=== PATIENT | male | born 1940 | race Caucasian/White ===

== ENCOUNTER → 2016-04-24 | Outpatient (CLI) | payer OTHER ==
[~2016-04-24] MED LIST: ALBUTEROL2.5 MG/0.1 INH; APAP500 PO; COUMADIN 5 MG TA5 M1 PO; COUMADIN7.5 MG PO; CYMBALTA30 MG PO; DULERA 100 MCG/13 GM; DULERA 200 MCG/13 GM INH; FINASTERIDE5 MG PO; KEFLEX500 MG PO; LANOXIN 0.120.125 M1 PO; MACULAR VITAMI1 EACH PO; MIRTAZAPINE45 MG PO; MULTIVITAMINS1 EAC7 PO; MYLANTA TABLET1 TA1 PO; NORCO 5-325 TA1 EACH; NORFLEX100 MG PO; OCUVITE TABLET1 EAC1 PO; PERCOCET 5-3251 EACH PO; PRILOSEC40 MG PO; PROAIR HFA8.5 GM; REMERON 30 MG T30 M1 PO; SYMBICORT160 MCG/4.; TAMSULOSIN HCL0.4 M1 PO; TYLENOL EX-STR500 M2; VERAPAMIL ER180 MG PO
== END ==
LOC: RAD 04-04 15:37
DX: I51.7 Cardiomegaly (principal); R06.02 Shortness of breath; R22.2 Localized swelling, mass and lump, trunk

== ENCOUNTER → 2016-09-14 | Outpatient (CLI) | payer OTHER | LOC: RAD 10:25 | DX: R06.00 Dyspnea, unspecified (principal) ==

== ENCOUNTER → 2016-10-09 | Outpatient (CLI) | payer OTHER | LOC: ULTRA 09:00 | DX: R22.1 Localized swelling, mass and lump, neck (principal) ==

== ENCOUNTER → 2016-12-08 | Outpatient (CLI) | payer OTHER | LOC: CAT 08:38 | DX: J47.9 Bronchiectasis, uncomplicated (principal); J84.10 Pulmonary fibrosis, unspecified; R06.02 Shortness of breath; R91.8 Other nonspecific abnormal finding of lung field ==

== ENCOUNTER → 2018-04-04 | Outpatient (CLI) | payer OTHER | LOC: CAT 09:08 | DX: R91.8 Other nonspecific abnormal finding of lung field (principal); M84.48XD Pathological fracture, other site, subsequent encounter for fracture with routine healing; M95.4 Acquired deformity of chest and rib; Z95.0 Presence of cardiac pacemaker ==

== ENCOUNTER → 2018-09-24 | Outpatient (CLI) | payer OTHER | LOC: RAD 14:07 | DX: M48.56XA Collapsed vertebra, not elsewhere classified, lumbar region, initial encounter for fracture (principal); M41.86 Other forms of scoliosis, lumbar region ==

== ENCOUNTER → 2019-11-27 | Outpatient (CLI) | payer OTHER | LOC: CAT 09:19 | PROVIDERS: ATTEND Pediatrics | DX: R91.1 Solitary pulmonary nodule (principal); J98.4 Other disorders of lung ==

== ENCOUNTER → 2020-06-01 | Outpatient (CLI) | payer OTHER ==
--- NOTE | 2020-06-01 12:38 | 2DMMODE ---
[facility] [place] [address] 2 D/M-MODE ECHOCARDIOGRAM Name: ELIU DOZIER Room #: REG [facility] M..#: [id number] Admission: 06/01/20 Attend Phys: Samy Patel MD Discharge: Date of : 38 Report #: [id number] THIS REPORT FOR: cc: Joe Jules MD, Mark A. MD Santiago, Patrick MD [facility] ~ ADDENDUM APPROVED REPORT Study performed: 06/01/2020 11:17:11 EXAM: Comprehensive 2D, Doppler, and color-flow Echocardiogram Patient Location: Out-Patient Room #: 2 Status: routine BSA: 1.83 HR: 75 bpm BP: 138/80 mmHg Rhythm: Pacemaker Other Information Study Quality: Technically DifficultTechnically Limited Technically limited study due to Chest deformity, Pectus Excavatum. Indications ICD: Dyspnea 2D Dimensions RVDd: 26.63 mm LVOT Diam: 25.03 (18-24mm) Ascending Ao: 40.58 (22-36mm) Aortic Root: 52.38 mm Volumes Left Atrial Volume (Systole) Single Plane 4CH: 90.06 mL Single Plane 2CH: 98.29 mL LA ESV Index: 57.00 mL/m2 Aortic Valve AoV Peak Reed.: 1.28 m/s AO Peak Gr.: 6.57 mmHg LVOT Max P.65 mmHg LVOT Max V: 0.96 m/s RUBEN Vmax: 3.67 cm2 [facility] [address] [place] [address] 2 D/M-MODE ECHOCARDIOGRAM Name: ELIU DOZIER Room #: REG CL [facility].#: [id number] Admission: 06/01/20 Attend Phys: Terry Rajput Discharge: Date of : 38 Report #: [id number] Pulmonary Valve PV Peak Reed.: 0.56 m/s PV Peak Gr.: 1.25 mmHg Tricuspid Valve TR Peak Reed.: 2.18 m/s TR Peak Gr.: 19.09 mmHg PA Pressure: 19.00 mmHg Left Ventricle The left ventricle is normal size. There is normal LV segmental wall motion. There is normal left ventricular wall thickness. The left ventricular systolic function is normal. The left ventricular ejection fraction is within the normal range. LVEF is 55-60%. This study is not technically sufficient to allow evaluation of the LV diastolic function. Right Ventricle The right ventricle is normal size. The right ventricular systolic function is normal. Device lead is present in the right ventricle. Atria Left atrium is dilated. Right atrium is dilated. Device lead is present in the right atrium. Aortic Valve The aortic valve is normal in structure. No aortic regurgitation is present. There is no aortic valvular stenosis. Mitral Valve The mitral valve is normal in structure. Mild mitral regurgitation. No evidence of mitral valve stenosis. Tricuspid Valve The tricuspid valve is normal in structure. There is trace tricuspid regurgitation. Estimated PAP 19 mmHg. Plus the right atrial pressure There is no pulmonary hypertension. Pulmonic Valve The pulmonary valve is normal in structure. There is no pulmonic valvular regurgitation. Great Vessels The aortic root is normal in size. IVC is not well visualized. [facility] [address] [place] [address] 2 D/M-MODE ECHOCARDIOGRAM Name: ELIU DOZIER Room #: REG CL [facility].#: [id number] Admission: 06/01/20 Attend Phys: Terry Rajput Discharge: Date of : 38 Report #: [id number] Pericardium There is no pericardial effusion. <Conclusion> Normal left ventricular size/wall thickness Ejection fraction 60% Severe distal septal hypokineses Normal right ventricular size/function Pacer wire detected in the right ventricle Moderate left atrial enlargement Mild right atrial enlargement Color-flow Doppler study was performed of the aortic/mitral/tricuspid/pulmonary valve Normal aortic valve structure and function Mild mitral valve insufficiency Trace tricuspid valve insufficiency Pulmonary systolic pressure estimated 19 mmHg No pericardial effusion <ELECTRONICALLY SIGNED> By: Edu Darby MD, [facility] 06/01/20 1238 1238 1238 Edu Darby MD, FACC /INF
== END ==
LOC: CAT 10:55
PROVIDERS: ATTEND Pediatrics
DX: I34.0 Nonrheumatic mitral (valve) insufficiency (principal); R91.1 Solitary pulmonary nodule; J98.4 Other disorders of lung; R06.02 Shortness of breath

== ENCOUNTER → 2020-12-03 | Outpatient (CLI) | payer OTHER | LOC: CAT 12:58 | PROVIDERS: ATTEND Pediatrics | DX: J98.4 Other disorders of lung (principal); R91.8 Other nonspecific abnormal finding of lung field; M95.4 Acquired deformity of chest and rib ==

== ENCOUNTER → 2020-12-16 | Outpatient (CLI) | payer OTHER | LOC: ULTRA 14:53 | PROVIDERS: ATTEND Internal Medicine | DX: M19.071 Primary osteoarthritis, right ankle and foot (principal); M79.89 Other specified soft tissue disorders; I70.90 Unspecified atherosclerosis; M17.11 Unilateral primary osteoarthritis, right knee; M25.461 Effusion, right knee ==

== ENCOUNTER → 2021-02-23 | Outpatient (CLI) | payer OTHER | LOC: SJCVCIMAG 07:18 | PROVIDERS: ATTEND Podiatrist Foot & Ankle Surgery | DX: M79.604 Pain in right leg (principal); M79.89 Other specified soft tissue disorders; I73.9 Peripheral vascular disease, unspecified ==